=== PATIENT | female | born 1950 ===

== ENCOUNTER 2023-06-09 08:38 | Outpatient (CLI) | payer MEDICARE ==
[2023-06-09] MEDS ORDERED: GADOTERATE MEGLUMINE 7.5 MMOL/15 ML VIAL IV ONE (10:19)
== END 2023-06-09 23:59 | disposition home or self-care (01) ==
LOC: MRI 08:38
PROVIDERS: ATTEND Internal Medicine
DX: G31.1 Senile degeneration of brain, not elsewhere classified (principal); R41.82 Altered mental status, unspecified
CPT/HCPCS: 70553; A9575